=== PATIENT | female | born 1955 | race American Indian/Alaskan Native ===

== ENCOUNTER 2017-05-29 10:19 | Outpatient (CLI) | payer MEDICAID ==
[2017-05-29 10:41] LABS: Hematocrit 32.4 % (30.3-42.9); Hemoglobin 10.7 gm/dl (10.1-14.3); Mean Corpuscular HGB Conc 33 % (30-34); Mean Corpuscular Hemoglobin 32 pg (28-32); Mean Corpuscular Volume 97 fl (79-97); Platelet Count 193 K/mm3 (140-440); Red Blood Count 3.35 M/mm3 (3.65-5.03); Red Cell Distribution Width 14.5 % (13.2-15.2); White Blood Count 5.8 K/mm3 (4.5-11.0)
[2017-05-29 11:03] LABS: BUN/Creatinine Ratio 18.69; Calcium 8.5 mg/dL (8.4-10.2); Chloride 100.2 mmol/L (98-107); Potassium 4.8 mmol/L (3.6-5.0)
[2017-06-02 08:24] LABS: Vitamin D, 25-OH, Total 42 ng/mL (30-100)
== END 2017-05-29 10:20 | disposition home or self-care (01) ==
LOC: LAB 10:19
PROVIDERS: ATTEND Specialist
DX: I13.0 Hypertensive heart and chronic kidney disease with heart failure and stage 1 through stage 4 chronic kidney disease, or unspecified chronic kidney disease (principal); I50.9 Heart failure, unspecified; N18.4 Chronic kidney disease, stage 4 (severe); E55.9 Vitamin D deficiency, unspecified; N25.81 Secondary hyperparathyroidism of renal origin; J44.9 Chronic obstructive pulmonary disease, unspecified; E03.9 Hypothyroidism, unspecified; F41.9 Anxiety disorder, unspecified
CPT/HCPCS: 36415; 80048; 82306; 83550; 83970; 85027

== ENCOUNTER 2017-10-05 20:17 | Inpatient (IN) | payer MEDICAID ==
--- NOTE | 2017-10-05 21:04 | Emergency Department Report ---
ED Chest Pain HPI - General Chief Complaint: Chest Pain Stated Complaint: CP Time Seen by Provider: 10/05/17 20:56 Source: patient Mode of arrival: Ambulatory Limitations: No Limitations - History of Present Illness Initial Comments: This is a 62 year-old female presents to the emergency department, dropped off by family to be seen, with complaint of midsternal left- sided chest pain has been going on for the past 2-3 days. It is gotten progressively worse since this morning. It is associated with some mild shortness of breath. She tried a sublingual nitroglycerin for her symptoms prior to presentation without much relief. She has a past medical history of hypertension, diabetes, chronic kidney disease, vascular disease and coronary artery disease with a stent placed in April at [place] and a double bypass back in 1991. She denies any tobacco use or illicit drug use. No recent travel or sick contacts at home. Her primary care physician is a Dr. Hamlin at [place] and her reagent tender is Dr. Mark Osorio. - Related Data Home Medications Medication Instructions Recorded Confirmed Last Taken Atorvastatin [Lipitor] 80 mg PO QHS 01/03/16 10/05/17 01/03/16 Citalopram [Celexa] 20 mg PO QDAY 01/03/16 10/05/17 01/03/16 Ferrous Sulfate [Feosol 325 MG tab] 325 mg PO QDAY 01/03/16 10/05/17 01/03/16 ISOSORBIDE MONOnitrate [Imdur ER] 120 mg PO QDAY 01/03/16 10/05/17 01/03/16 Levothyroxine Sodium [Synthroid] 112 mcg PO QDAY 01/03/16 10/05/17 01/03/16 Metoprolol Xl [Metoprolol 100 mg PO QDAY 01/03/16 10/05/17 01/03/16 SUCCINATE ER TAB] Nitroglycerin [place] [Nitromist] 1 spray TL Q5MIN PRN 01/03/16 10/05/17 Unknown Ranolazine ER [Ranexa ER] 1,000 mg PO BID 01/03/16 10/05/17 01/03/16 amLODIPine [Norvasc] 10 mg PO DAILY 01/03/16 10/05/17 01/03/16 cloNIDine [Catapres] 0.2 mg PO BID 01/03/16 10/05/17 01/03/16 Albuterol Sulfate [Ventolin HFA] 2 puff IH BID PRN 10/05/17 10/05/17 Unknown Capsaicin 0.075% [Zostrix Hp 1 applicatio TP TID 10/05/17 10/05/17 Unknown 0.075%] Cholecalciferol (Vitamin D3) 400 unit PO BID 10/05/17 10/05/17 Unknown [Vitamin D] Cyclobenzaprine [Flexeril] 5 mg PO TID PRN 10/05/17 10/05/17 Unknown Fluticasone [Flonase] 1 spray NS QDAY 10/05/17 10/05/17 Unknown Insulin Detemir [Levemir Flextouch] 15 unit SQ QHS 10/05/17 10/05/17 Unknown Plecanatide [Trulance] 3 mg PO DAILY 10/05/17 10/05/17 Unknown Potassium Chloride 10 meq PO BID 10/05/17 10/05/17 Unknown Ranitidine HCl [Acid Control] 150 mg PO BID 10/05/17 10/05/17 Unknown Valsartan 40 mg PO DAILY 10/05/17 10/05/17 Unknown glipiZIDE [glipiZIDE XL] 2.5 mg PO DAILY 10/05/17 10/05/17 Unknown oxyCODONE [Roxicodone] 10 mg PO Q6HR PRN 10/05/17 10/05/17 Unknown Previous Rx's Medication Instructions Recorded Last Taken Type Aspirin [Adult Low Dose Aspirin EC] 81 mg PO DAILY #30 tab 01/05/16 Unknown Rx Clopidogrel [Plavix] 75 mg PO QDAY #30 tablet 01/05/16 Unknown Rx Furosemide [Lasix TAB] 40 mg PO QDAY #30 tablet 01/05/16 Unknown Rx Allergies Allergy/AdvReac Type Severity Reaction Status Date / Time lubiprostone [From Amitiza] Allergy Anaphylaxis Verified 10/05/17 21:00 PLASTIC TAPE Allergy MAKES PT Uncoded 11/24/15 09:50 ARM SORE Heart Score - HEART Score History: Moderately suspicious EKG: Non-specific Age: 45-65 Risk factors: > 3 risk factors or hx of atherosclerotic disease Troponin: < normal limit HEART Score: 5 - Critical Actions Critical Actions: 4-6 pts:12-16.6% risk of adverse cardiac event. Should be admitted ED Review of Systems ROS: Stated complaint: CP Other details as noted in HPI Comment: All other systems reviewed and negative Constitutional: denies: chills, fever Eyes: denies: eye pain, eye discharge, vision change ENT: denies: ear pain, throat pain Respiratory: shortness of breath. denies: cough Cardiovascular: chest pain. denies: palpitations Gastrointestinal: denies: abdominal pain, nausea, diarrhea Genitourinary: denies: urgency, dysuria, discharge Musculoskeletal: denies: back pain, joint swelling, arthralgia Skin: denies: rash, lesions Neurological: denies: headache, weakness, paresthesias ED Past Medical Hx - Past Medical History Previous Medical History?: Yes Hx Hypertension: Yes Hx Heart Attack/AMI: Yes Hx Congestive Heart Failure: Yes Hx Diabetes: Yes Hx Renal Disease: Yes Hx Headaches / Migraines: Yes Hx COPD: Yes Additional medical history: "heart disease" - Surgical History Past Surgical History?: Yes Hx Open Heart Surgery: Yes - Social History Smoking Status: Never Smoker Substance Use Type: None - Medications Home Medications: Home Medications Medication Instructions Recorded Confirmed Last Taken Type Atorvastatin [Lipitor] 80 mg PO QHS 01/03/16 10/05/17 01/03/16 History Citalopram [Celexa] 20 mg PO QDAY 01/03/16 10/05/17 01/03/16 History Ferrous Sulfate [Feosol 325 MG tab] 325 mg PO QDAY 01/03/16 10/05/17 01/03/16 History ISOSORBIDE MONOnitrate [Imdur ER] 120 mg PO QDAY 01/03/16 10/05/17 01/03/16 History Levothyroxine Sodium [Synthroid] 112 mcg PO QDAY 01/03/16 10/05/17 01/03/16 History Metoprolol Xl [Metoprolol 100 mg PO QDAY 01/03/16 10/05/17 01/03/16 History SUCCINATE ER TAB] Nitroglycerin [place] [Nitromist] 1 spray TL Q5MIN PRN 01/03/16 10/05/17 Unknown History Ranolazine ER [Ranexa ER] 1,000 mg PO BID 01/03/16 10/05/17 01/03/16 History amLODIPine [Norvasc] 10 mg PO DAILY 01/03/16 10/05/17 01/03/16 History cloNIDine [Catapres] 0.2 mg PO BID 01/03/16 10/05/17 01/03/16 History Aspirin [Adult Low Dose Aspirin EC] 81 mg PO DAILY #30 tab 01/05/16 10/05/17 Unknown Rx Clopidogrel [Plavix] 75 mg PO QDAY #30 tablet 01/05/16 10/05/17 Unknown Rx Furosemide [Lasix TAB] 40 mg PO QDAY #30 tablet 01/05/16 10/05/17 Unknown Rx Albuterol Sulfate [Ventolin HFA] 2 puff IH BID PRN 10/05/17 10/05/17 Unknown History Capsaicin 0.075% [Zostrix Hp 1 applicatio TP TID 10/05/17 10/05/17 Unknown History 0.075%] Cholecalciferol (Vitamin D3) 400 unit PO BID 10/05/17 10/05/17 Unknown History [Vitamin D] Cyclobenzaprine [Flexeril] 5 mg PO TID PRN 10/05/17 10/05/17 Unknown History Fluticasone [Flonase] 1 spray NS QDAY 10/05/17 10/05/17 Unknown History Insulin Detemir [Levemir Flextouch] 15 unit SQ QHS 10/05/17 10/05/17 Unknown History Plecanatide [Trulance] 3 mg PO DAILY 10/05/17 10/05/17 Unknown History Potassium Chloride 10 meq PO BID 10/05/17 10/05/17 Unknown History Ranitidine HCl [Acid Control] 150 mg PO BID 10/05/17 10/05/17 Unknown History Valsartan 40 mg PO DAILY 10/05/17 10/05/17 Unknown History glipiZIDE [glipiZIDE XL] 2.5 mg PO DAILY 10/05/17 10/05/17 Unknown History oxyCODONE [Roxicodone] 10 mg PO Q6HR PRN 10/05/17 10/05/17 Unknown History ED Physical Exam - General Limitations: No Limitations - Other Other exam information: GENERAL: The patient is well-developed well-nourished. HENT: Normocephalic. Atraumatic. Patient has moist mucous membranes. EYES: Extraocular motions are intact. Pupils equal reactive to light bilaterally. NECK: Supple. Trachea is midline. CHEST/LUNGS: Clear to auscultation. There is no respiratory distress noted. HEART/CARDIOVASCULAR: Regular. There is no tachycardia. There is no murmur. ABDOMEN: Abdomen is soft, nontender. Patient has normal bowel sounds. There is no abdominal distention. SKIN: Skin is warm and dry. NEURO: The patient is awake, alert, and oriented. The patient is cooperative. The patient has no focal neurologic deficits. The patient has normal speech. MUSCULOSKELETAL: There is no tenderness or deformity. There is no limitation range of motion. There is no evidence of acute injury. ED Course Vital Signs 10/05/17 10/05/17 10/05/17 20:38 20:40 20:46 Temperature Pulse Rate 67 64 66 Respiratory 12 15 17 Rate Blood Pressure Blood Pressure [Right] O2 Sat by Pulse 99 100 Oximetry 10/05/17 10/05/17 10/05/17 20:50 20:52 21:44 Temperature 98.7 F 98.4 F Pulse Rate 63 65 66 Respiratory 16 20 18 Rate Blood Pressure 159/68 159/68 Blood Pressure 150/68 [Right] O2 Sat by Pulse 100 100 100 Oximetry PAVEL score - Pavel Score Age > 65: (0) No Aspirin use within the Past 7 Days: (0) No 3 or more CAD Risk Factors: (1) Yes 2 or more Angina events in past 24 hrs: (1) Yes Known CAD with more than 50% Stenosis: (0) No Elevated Cardiac Markers: (0) No ST Deviation Greater than 0.5mm: (0) No PAVEL Score: 2 ED Medical Decision Making - Lab Data Result diagrams: 10/05/17 21:10 10/05/17 21:10 - EKG Data -: EKG Interpreted by Me EKG shows normal: sinus rhythm, axis, intervals (prolonged MT interval), QRS complexes (Q waves to the anterior leads), ST-T waves Rate: normal - EKG Data When compared to previous EKG there are: no significant change Interpretation: unchanged when compared t (01/03/16) - Radiology Data Radiology results: report reviewed, image reviewed interpreted by me: Chest x-ray does not show any acute process. There are no pleural effusions, obvious pneumonia and there is no pneumothorax. VQ scan was low probability for a pulmonary embolus. - Medical Decision Making Patient presents with some chest pain and intermittent shortness of breath. She has a significant history of previous coronary artery disease with stent placement in the [facility] in April. EKG does not show any signs of ST elevation DE. Negative troponins 2 this far. Equivocal d-dimer so VQ scan was done that showed low probability of pulmonary embolus. She has a UTI so she was placed on antibiotics. She will be admitted to the hospital for further evaluation and treatment has been accepted for admission by the hospitalist, Dr. Singh. - Differential Diagnosis DE, PE, Costochondritis, GERD Critical Care Time: No Critical care attestation.: If time is entered above; I have spent that time in minutes in the direct care of this critically ill patient, excluding procedure time. ED Disposition Clinical Impression: Chest pressure, Renal insufficiency, History of coronary artery disease, Stented coronary artery Hypertension Qualifiers: Hypertension type: essential hypertension Qualified Code(s): I10 - Essential ( primary) hypertension UTI (urinary tract infection) Qualifiers: Urinary tract infection type: acute cystitis Hematuria presence: without hematuria Qualified Code(s): N30.00 - Acute cystitis without hematuria Disposition: OP ADMIT IP TO THIS HOSP Is pt being admited?: Yes Condition: Stable Time of Disposition: 23:37
[2017-10-05] MEDS ORDERED: MORPHINE IV ONE (21:09)
[2017-10-05] MEDS ORDERED: ZOFRAN IV ONE (21:09)
[2017-10-05 21:19] LABS: Basophils % (Auto) 0.3 % (0.0-1.8); Eosinophils # (Auto) 0.2 K/mm3 (0.0-0.4); Eosinophils % (Auto) 2.3 % (0.0-4.3); Hematocrit 34.5 % (30.3-42.9); Hemoglobin 11.5 gm/dl (10.1-14.3); Lymphocytes # (Auto) 2.6 K/mm3 (1.2-5.4); Lymphocytes % (Auto) 39.7 % (13.4-35.0); Mean Corpuscular HGB Conc 33 % (30-34); Mean Corpuscular Hemoglobin 32 pg (28-32); Mean Corpuscular Volume 96 fl (79-97); Monocytes # (Auto) 0.7 K/mm3 (0.0-0.8); Monocytes % (Auto) 10.2 % (0.0-7.3); Platelet Count 222 K/mm3 (140-440); Red Blood Count 3.58 M/mm3 (3.65-5.03); Red Cell Distribution Width 14.1 % (13.2-15.2)
[2017-10-05 21:43] LABS: Alanine Aminotransferase 13 units/L (7-56); Albumin 4.3 g/dL (3.9-5); BUN/Creatinine Ratio 16; Blood Urea Nitrogen 35 mg/dL (7-17); Calcium 9.1 mg/dL (8.4-10.2); Hemolysis Index 14
[2017-10-05 21:54] LABS: Bacteria,Urine 1+ /HPF (Negative); Bilirubin,Urine NEG (Negative); Blood,Urine NEG (Negative); Color,Urine Yellow (Yellow); Mucus,Urine FEW /HPF; Nitrite,Urine NEG (Negative); Urobilinogen,Urine < 2.0 mg/dL (<2.0)
[2017-10-05] MEDS ORDERED: cefTRIAXone 1 GM in NACL 0.9% 20 ML IV ONE (22:16)
--- NOTE | 2017-10-05 22:29 | XRay Report ---
FINAL REPORT PROCEDURE: XR CHEST 1V AP TECHNIQUE: A portable AP chest radiograph was obtained at 10/06/2017 02:10 ([facility]) . CPT 29757 HISTORY: Chest pain. COMPARISON: Rib series radiographs dated 08/10/2016. FINDINGS: Heart: Mild cardiomegaly. Mediastinum/Vessels: Aortic tortuosity. Lungs/Pleural space: Low lung volumes. Bony thorax: Sternotomy. Mild osteopenia. Mild degenerative changes of the spine. Subchondral cystic changes in the left greater tuberosity. Life support devices: None. IMPRESSION: No new radiographic evidence of acute cardiopulmonary disease. Mild cardiomegaly and aortic tortuosity.
--- NOTE | 2017-10-05 23:31 | Nuclear Medicine Report ---
FINAL REPORT EXAM: NM LUNG SCAN PERF/VENT HISTORY: CP, elevated dimer COMPARISON: Chest x-ray from October 05, 2017. TECHNIQUE: 15 millicurie xenon 133 given for the ventilation portion exam. 5 millicuries technetium 99 M MAA given for the perfusion portion the study by IV. Images of the lungs obtained. FINDINGS: Relatively homogeneous uptake of tracer on the ventilation portion exam. Mild diffuse heterogeneous uptake of tracer on the perfusion portion exam. No mismatched defect. IMPRESSION: Low probability exam for pulmonary embolus.
--- NOTE | 2017-10-05 23:57 | History and Physical Report ---
History of Present Illness Date of examination: 10/05/17 Date of admission: 10/06/2017 Chief complaint: chief complaint: Chest pain since yesterday. History of present illness: History of Present Illness 62 year-old female with past medical history of hypertension, type 2 diabetes, gastroesophageal reflux disease, coronary artery disease, hypothyroidism, hyperlipidemia and anemia presents with complaint of midsternal left-sided chest pain that has been going on for the past 2-3 days. It is gotten progressively worse since this morning. It is associated with some mild shortness of breath. Not associated with any diaphoresis or shortness of breath or palpitations. She tried a sublingual nitroglycerin for her symptoms prior to presentation without much relief. No recent travel or sick contacts at home. Her primary care physician is a Dr. Hamlin at [place] and her medical diagnostic radiographer is Dr. Mark Osorio.Had a stent placement in April 2070 Past Medical History Previous Medical History?: Yes Hx Hypertension: Yes Hx Heart Attack/AMI: Yes Hx Congestive Heart Failure: Yes Hx Diabetes: Yes Hx Renal Disease: Yes Hx Headaches / Migraines: Yes Hx COPD: Yes Additional medical history: "heart disease" - Surgical History Past Surgical History?: Yes Hx Open Heart Surgery: Yes stent placement - Social History Smoking Status: Never Smoker Substance Use Type: None Fam Hx Htn - Medications Home Medications: Home Medications Medication Instructions Recorded Confirmed Last Taken Type Atorvastatin [Lipitor] 80 mg PO QHS 01/03/16 10/05/17 01/03/16 History Citalopram [Celexa] 20 mg PO QDAY 01/03/16 10/05/17 01/03/16 History Ferrous Sulfate [Feosol 325 MG tab] 325 mg PO QDAY 01/03/16 10/05/17 01/03/16 History ISOSORBIDE MONOnitrate [Imdur ER] 120 mg PO QDAY 01/03/16 10/05/17 01/03/16 History Levothyroxine Sodium [Synthroid] 112 mcg PO QDAY 01/03/16 10/05/17 01/03/16 History Metoprolol Xl [Metoprolol 100 mg PO QDAY 01/03/16 10/05/17 01/03/16 History SUCCINATE ER TAB] Nitroglycerin [place] [Nitromist] 1 spray TL Q5MIN PRN 01/03/16 10/05/17 Unknown History Ranolazine ER [Ranexa ER] 1,000 mg PO BID 01/03/16 10/05/17 01/03/16 History amLODIPine [Norvasc] 10 mg PO DAILY 01/03/16 10/05/17 01/03/16 History cloNIDine [Catapres] 0.2 mg PO BID 01/03/16 10/05/17 01/03/16 History Aspirin [Adult Low Dose Aspirin EC] 81 mg PO DAILY #30 tab 01/05/16 10/05/17 Unknown Rx Clopidogrel [Plavix] 75 mg PO QDAY #30 tablet 01/05/16 10/05/17 Unknown Rx Furosemide [Lasix TAB] 40 mg PO QDAY #30 tablet 01/05/16 10/05/17 Unknown Rx Albuterol Sulfate [Ventolin HFA] 2 puff IH BID PRN 10/05/17 10/05/17 Unknown History Capsaicin 0.075% [Zostrix Hp 1 applicatio TP TID 10/05/17 10/05/17 Unknown History 0.075%] Cholecalciferol (Vitamin D3) 400 unit PO BID 10/05/17 10/05/17 Unknown History [Vitamin D] Cyclobenzaprine [Flexeril] 5 mg PO TID PRN 10/05/17 10/05/17 Unknown History Fluticasone [Flonase] 1 spray NS QDAY 10/05/17 10/05/17 Unknown History Insulin Detemir [Levemir Flextouch] 15 unit SQ QHS 10/05/17 10/05/17 Unknown History Plecanatide [Trulance] 3 mg PO DAILY 10/05/17 10/05/17 Unknown History Potassium Chloride 10 meq PO BID 10/05/17 10/05/17 Unknown History Ranitidine HCl [Acid Control] 150 mg PO BID 10/05/17 10/05/17 Unknown History Valsartan 40 mg PO DAILY 10/05/17 10/05/17 Unknown History glipiZIDE [glipiZIDE XL] 2.5 mg PO DAILY 10/05/17 10/05/17 Unknown History oxyCODONE [Roxicodone] 10 mg PO Q6HR PRN 10/05/17 10/05/17 Unknown History Review of Systems Stated complaint: CP Other details as noted in HPI Comment: All other systems reviewed and negative Constitutional: denies: chills, fever Eyes: denies: eye pain, eye discharge, vision change ENT: denies: ear pain, throat pain Respiratory: shortness of breath. denies: cough Cardiovascular: chest pain. denies: palpitations Gastrointestinal: denies: abdominal pain, nausea, diarrhea Genitourinary: denies: urgency, dysuria, discharge Musculoskeletal: denies: back pain, joint swelling, arthralgia Skin: denies: rash, lesions Neurological: denies: headache, weakness, paresthesias Medications and Allergies Allergies Allergy/AdvReac Type Severity Reaction Status Date / Time lubiprostone [From Amitiza] Allergy Anaphylaxis Verified 10/05/17 21:00 PLASTIC TAPE Allergy MAKES PT Uncoded 11/24/15 09:50 ARM SORE Home Medications Medication Instructions Recorded Confirmed Last Taken Type Atorvastatin [Lipitor] 80 mg PO QHS 01/03/16 10/05/17 01/03/16 History Citalopram [Celexa] 20 mg PO QDAY 01/03/16 10/05/17 01/03/16 History Ferrous Sulfate [Feosol 325 MG tab] 325 mg PO QDAY 01/03/16 10/05/17 01/03/16 History ISOSORBIDE MONOnitrate [Imdur ER] 120 mg PO QDAY 01/03/16 10/05/17 01/03/16 History Levothyroxine Sodium [Synthroid] 112 mcg PO QDAY 01/03/16 10/05/17 01/03/16 History Metoprolol Xl [Metoprolol 100 mg PO QDAY 01/03/16 10/05/17 01/03/16 History SUCCINATE ER TAB] Nitroglycerin [place]elin [Nitromist] 1 spray TL Q5MIN PRN 01/03/16 10/05/17 Unknown History Ranolazine ER [Ranexa ER] 1,000 mg PO BID 01/03/16 10/05/17 01/03/16 History amLODIPine [Norvasc] 10 mg PO DAILY 01/03/16 10/05/17 01/03/16 History cloNIDine [Catapres] 0.2 mg PO BID 01/03/16 10/05/17 01/03/16 History Aspirin [Adult Low Dose Aspirin EC] 81 mg PO DAILY #30 tab 01/05/16 10/05/17 Unknown Rx Clopidogrel [Plavix] 75 mg PO QDAY #30 tablet 01/05/16 10/05/17 Unknown Rx Furosemide [Lasix TAB] 40 mg PO QDAY #30 tablet 01/05/16 10/05/17 Unknown Rx Albuterol Sulfate [Ventolin HFA] 2 puff IH BID PRN 10/05/17 10/05/17 Unknown History Capsaicin 0.075% [Zostrix Hp 1 applicatio TP TID 10/05/17 10/05/17 Unknown History 0.075%] Cholecalciferol (Vitamin D3) 400 unit PO BID 10/05/17 10/05/17 Unknown History [Vitamin D] Cyclobenzaprine [Flexeril] 5 mg PO TID PRN 10/05/17 10/05/17 Unknown History Fluticasone [Flonase] 1 spray NS QDAY 10/05/17 10/05/17 Unknown History Insulin Detemir [Levemir Flextouch] 15 unit SQ QHS 10/05/17 10/05/17 Unknown History Plecanatide [Trulance] 3 mg PO DAILY 10/05/17 10/05/17 Unknown History Potassium Chloride 10 meq PO BID 10/05/17 10/05/17 Unknown History Ranitidine HCl [Acid Control] 150 mg PO BID 10/05/17 10/05/17 Unknown History Valsartan 40 mg PO DAILY 10/05/17 10/05/17 Unknown History glipiZIDE [glipiZIDE XL] 2.5 mg PO DAILY 10/05/17 10/05/17 Unknown History oxyCODONE [Roxicodone] 10 mg PO Q6HR PRN 10/05/17 10/05/17 Unknown History Active Meds: Active Medications Heparin Sodium (Porcine) (Heparin) 5,000 unit SUB-Q Q8HR [facility] Exam - Physical Exam Narrative exam: lying in bed comfortably - Constitutional Vitals: Temp Pulse Resp BP Pulse Ox 98.4 F 66 18 150/68 100 10/05/17 21:44 10/05/17 21:44 10/05/17 21:44 10/05/17 21:44 10/05/17 21:44 General appearance: Present: no acute distress, well-nourished - EENT Eyes: Present: PERRL ENT: hearing intact, clear oral mucosa - Neck Neck: Present: supple, normal ROM - Respiratory Respiratory effort: normal Respiratory: bilateral: CTA - Cardiovascular Heart rate: 66 Rhythm: regular Heart Sounds: Present: S1 & S2. Absent: rub, click - Extremities Extremities: pulses symmetrical, No edema Peripheral Pulses: within normal limits - Abdominal General gastrointestinal: Present: soft, non-tender, non-distended, normal bowel sounds Female genitourinary: Present: normal - Rectal Rectal Exam: deferred - Integumentary Integumentary: Present: clear, warm, dry - Musculoskeletal Musculoskeletal: gait normal, strength equal bilaterally - Psychiatric Psychiatric: appropriate mood/affect, intact judgment & insight - Neurologic Neurologic: CNII-XII intact, moves all extremities - Allied Health Allied health notes reviewed: nursing, case management Results - Labs CBC & Chem 7: 10/05/17 21:10 10/05/17 21:10 Labs: Laboratory Last Values WBC 6.6 K/mm3 (4.5-11.0) 10/05/17 21:10 RBC 3.58 M/mm3 (3.65-5.03) L 10/05/17 21:10 Hgb 11.5 gm/dl (10.1-14.3) 10/05/17 21:10 Hct 34.5 % (30.3-42.9) 10/05/17 21:10 MCV 96 fl (79-97) 10/05/17 21:10 MCH 32 pg (28-32) 10/05/17 21:10 MCHC 33 % (30-34) 10/05/17 21:10 RDW 14.1 % (13.2-15.2) 10/05/17 21:10 Plt Count 222 K/mm3 (140-440) 10/05/17 21:10 Lymph % (Auto) 39.7 % (13.4-35.0) H 10/05/17 21:10 [place] % (Auto) 10.2 % (0.0-7.3) H 10/05/17 21:10 Eos % (Auto) 2.3 % (0.0-4.3) 10/05/17 21:10 Baso % (Auto) 0.3 % (0.0-1.8) 10/05/17 21:10 Lymph # 2.6 K/mm3 (1.2-5.4) 10/05/17 21:10 [place] # 0.7 K/mm3 (0.0-0.8) 10/05/17 21:10 Eos # 0.2 K/mm3 (0.0-0.4) 10/05/17 21:10 Baso # 0.0 K/mm3 (0.0-0.1) 10/05/17 21:10 Seg Neutrophils % 47.5 % (40.0-70.0) 10/05/17 21:10 Seg Neutrophils # 3.1 K/mm3 (1.8-7.7) 10/05/17 21:10 D-Dimer 334.19 ng/mlDDU (0-234) H 10/05/17 21:10 Sodium 133 mmol/L (137-145) L 10/05/17 21:10 Potassium 5.0 mmol/L (3.6-5.0) 10/05/17 21:10 Chloride 93.6 mmol/L (98-107) L 10/05/17 21:10 Carbon Dioxide 25 mmol/L (22-30) 10/05/17 21:10 Anion Gap 19 mmol/L 10/05/17 21:10 BUN 35 mg/dL (7-17) H 10/05/17 21:10 Creatinine 2.2 mg/dL (0.7-1.2) H 10/05/17 21:10 Estimated GFR 27 ml/min 10/05/17 21:10 BUN/Creatinine Ratio 16 % 10/05/17 21:10 Glucose 219 mg/dL (65-100) H 10/05/17 21:10 Calcium 9.1 mg/dL (8.4-10.2) 10/05/17 21:10 Total Bilirubin 0.30 mg/dL (0.1-1.2) 10/05/17 21:10 AST 19 units/L (5-40) 10/05/17 21:10 ALT 13 units/L (7-56) 10/05/17 21:10 Alkaline Phosphatase 56 units/L (35-129) 10/05/17 21:10 Troponin T < 0.010 ng/mL (0.00-0.029) 10/05/17 21:10 Total Protein 6.7 g/dL (6.3-8.2) 10/05/17 21:10 Albumin 4.3 g/dL (3.9-5) 10/05/17 21:10 Albumin/Globulin Ratio 1.8 % 10/05/17 21:10 Urine Color Yellow (Yellow) 10/05/17 Unknown Urine Turbidity Clear (Clear) 10/05/17 Unknown Urine pH 6.0 (5.0-7.0) 10/05/17 Unknown Ur Specific [place] 1.017 (1.003-1.030) 10/05/17 Unknown Urine Protein 30 mg/dl mg/dL (Negative) 10/05/17 Unknown Urine Glucose (UA) Neg mg/dL (Negative) 10/05/17 Unknown Urine Ketones Neg mg/dL (Negative) 10/05/17 Unknown Urine Blood Neg (Negative) 10/05/17 Unknown Urine Nitrite Neg (Negative) 10/05/17 Unknown Urine Bilirubin Neg (Negative) 10/05/17 Unknown Urine Urobilinogen < 2.0 mg/dL (<2.0) 10/05/17 Unknown Ur Leukocyte Esterase Lg (Negative) 10/05/17 Unknown Urine WBC (Auto) 49.0 /HPF (0.0-6.0) H 10/05/17 Unknown Urine RBC (Auto) 4.0 /HPF (0.0-6.0) 10/05/17 Unknown U Epithel Cells (Auto) 1.0 /HPF (0-13.0) 10/05/17 Unknown Urine Bacteria (Auto) 1+ /HPF (Negative) 10/05/17 Unknown Urine Mucus Few /HPF 10/05/17 Unknown Short CBC 10/05/17 Range/Units 21:10 WBC 6.6 (4.5-11.0) K/mm3 Hgb 11.5 (10.1-14.3) gm/dl Hct 34.5 (30.3-42.9) % Plt Count 222 (140-440) K/mm3 BMP 10/05/17 21:10 Sodium 133 L Potassium 5.0 Chloride 93.6 L Carbon Dioxide 25 BUN 35 H Creatinine 2.2 H Glucose 219 H Calcium 9.1 Cardiac Enzymes 10/05/17 10/05/17 10/06/17 Range/Units 21:10 23:43 03:35 Troponin T < 0.010 < 0.010 0.012 (0.00-0.029) ng/mL Liver Function 10/05/17 Range/Units 21:10 Total Bilirubin 0.30 (0.1-1.2) mg/dL AST 19 (5-40) units/L ALT 13 (7-56) units/L Alkaline Phosphatase 56 (35-129) units/L Albumin 4.3 (3.9-5) g/dL Urine 10/05/17 Range/Units Unknown Urine Color Yellow (Yellow) Urine pH 6.0 (5.0-7.0) Ur Specific [place] 1.017 (1.003-1.030) Urine Protein 30 mg/dl (Negative) mg/dL Urine Glucose (UA) Neg (Negative) mg/dL - Imaging and Cardiology EKG: report reviewed (normal sinus rhythm prolonged HI interval and nonspecific intraventricular conduction delay interpreted by me) Assessment and Plan Advance Directives: Yes (full code) VTE prophylaxis?: Chemical Plan of care discussed with patient/family: Yes - Patient Problems (1) Chest pain in adult Current Visit: Yes Status: Acute Plan to address problem: chest pain workup. Serial cardiac enzymes. Lexiscan in a.m. Differential diagnosis of costochondritis and gastroesophageal reflux disease. In favor of stable angina. No costochondritis. No chest wall tenderness. Reflexes a possibility (2) Coronary artery disease Current Visit: Yes Status: Chronic Qualifiers: Coronary Disease-Associated Artery/Lesion type: [place] artery [place] vs. transplanted heart: [place] heart Associated angina: with stable angina Qualified Code(s): I25.118 - Atherosclerotic heart disease of [place] coronary artery with other forms of angina pectoris Plan to address problem: continue isosorbide mononitrate 120 mg once a day (3) Hyperlipidemia Current Visit: Yes Status: Chronic Qualifiers: Hyperlipidemia type: mixed hyperlipidemia Qualified Code(s): E78.2 - Mixed hyperlipidemia Plan to address problem: continue statins in the form of Lipitor 80 mg daily at bedtime (4) Hypothyroidism Current Visit: Yes Status: Chronic Qualifiers: Hypothyroidism type: acquired Qualified Code(s): E03.9 - Hypothyroidism, unspecified Plan to address problem: continue Synthroid 112 g once a day (5) Hypertension Current Visit: Yes Status: Chronic Qualifiers: Hypertension type: essential hypertension Qualified Code(s): I10 - Essential (primary) hypertension Plan to address problem: continue antihypertensives in the form of Diovan and metoprolol and clonidine. (6) CHF (congestive heart failure) Current Visit: Yes Status: Chronic Qualifiers: Congestive heart failure type: combined Plan to address problem: continue Lasix (7) T2DM (type 2 diabetes mellitus) Current Visit: Yes Status: Chronic Qualifiers: Diabetes mellitus complication status: without complication Diabetes mellitus mcfp insulin use: without mcfp use Qualified Code(s): E11.9 - Type 2 diabetes mellitus without complications Plan to address problem: continue glipizide and insulin coverage (8) Vitamin D deficiency Current Visit: Yes Status: Chronic Plan to address problem: continue vitamin D (9) Chronic idiopathic constipation Current Visit: Yes Status: Chronic Plan to address problem: continue plecanatide 3mg po qd (10) UTI (urinary tract infection) Current Visit: Yes Status: Acute Qualifiers: Urinary tract infection type: acute cystitis Hematuria presence: without hematuria Qualified Code(s): N30.00 - Acute cystitis without hematuria Plan to address problem: Initiated on Rocephin 1 g IV piggyback daily (11) GERD (gastroesophageal reflux disease) Current Visit: Yes Status: Chronic Qualifiers: Esophagitis presence: without esophagitis Qualified Code(s): K21.9 - Gastro -esophageal reflux disease without esophagitis Plan to address problem: continue ranitidine 150 mg twice a day (12) Chronic kidney disease Current Visit: Yes Status: Chronic Qualifiers: Chronic kidney disease stage: stage 3 (moderate) Qualified Code(s): N18.3 - Chronic kidney disease, stage 3 (moderate) Plan to address problem: stable (13) DVT prophylaxis Current Visit: Yes Status: Acute Plan to address problem: initiated on Lovenox
[2017-10-06] MEDS ORDERED: ZOFRAN ONE (00:58)
[2017-10-06] MEDS ORDERED: MORPHINE ONE (00:59)
[2017-10-06] MEDS ORDERED: ZOFRAN IV PRN ×2 (05:25→07:23)
[2017-10-06] MEDS: MORPHINE IV PRN (05:38)
[2017-10-06] MEDS ORDERED: HEPARIN SUB-Q SCH (06:00)
[2017-10-06] MEDS ORDERED: FLEXERIL PO PRN (07:20)
[2017-10-06] MEDS ORDERED: NITROMIST TL PRN (07:20)
[2017-10-06] MEDS ORDERED: PROAIR IH PRN (07:20)
[2017-10-06] MEDS ORDERED: ROXICODONE PO PRN (07:20)
[2017-10-06] MEDS ORDERED: PERCOCET 5/325 PO PRN (07:23)
[2017-10-06] MEDS ORDERED: TYLENOL PO PRN (09:00)
[2017-10-06] MEDS ORDERED: LEVOTHYROXINE SODIUM 112 MCG PO SCH (10:00)
[2017-10-06] MEDS ORDERED: DULCOLAX PR PRN (10:00)
[2017-10-06] MEDS ORDERED: NON-FORMULARY (Potassium Chloride [Potassium Chloride] 10 MEQ) PO SCH (10:00)
[2017-10-06] MEDS ORDERED: PLECANATIDE 3 MG PO SCH (10:00)
[2017-10-06] MEDS ORDERED: NON-FORMULARY (Ranitidine Hcl [Acid Control] 150 MG) PO SCH (10:00)
[2017-10-06] MEDS ORDERED: CHOLECALCIFEROL 400 UNIT PO SCH (10:00)
[2017-10-06] MEDS ORDERED: PROVENTIL IH PRN ×2 (10:42→10:49)
--- NOTE | 2017-10-06 10:50 | Consultation ---
History of Present Illness Consult date: 10/06/17 Requesting physician: AZEEM BARRIOS Consult reason: chest pain History of present illness: 62 year-old female who follows Dr. Mark Osorio on a regular basis , presented to the hospital with spontaneous onset of chest pain. Patient reports severe 7-8 out of 10 substernal chest pain that was spontaneous in onset. She did try some sublingual nitroglycerin with marginal benefit. Given her significant cardiac history she presented to the hospital. By the time she presented to the hospital her chest pain was significantly better. She has not had any recurrence of chest pain since she's been admitted. So far her cardiac enzymes are being unremarkable and the EKG shows anteroseptal Q waves that does not appear to be significantly changed from before. She does have a significant cardiac history. She is status post bypass surgery and apparently had recent PCI a few months ago at [facility]. Past History Past Medical History: CAD Past Surgical History: CABG Social history: no significant social history Family history: no significant family history Medications and Allergies Allergies Allergy/AdvReac Type Severity Reaction Status Date / Time lubiprostone [From Amitiza] Allergy Anaphylaxis Verified 10/05/17 21:00 PLASTIC TAPE Allergy MAKES PT Uncoded 11/24/15 09:50 ARM SORE Home Medications Medication Instructions Recorded Confirmed Last Taken Type Atorvastatin [Lipitor] 80 mg PO QHS 01/03/16 10/05/17 01/03/16 History Citalopram [Celexa] 20 mg PO QDAY 01/03/16 10/05/17 01/03/16 History Ferrous Sulfate [Feosol 325 MG tab] 325 mg PO QDAY 01/03/16 10/05/17 01/03/16 History ISOSORBIDE MONOnitrate [Imdur ER] 120 mg PO QDAY 01/03/16 10/05/17 01/03/16 History Levothyroxine Sodium [Synthroid] 112 mcg PO QDAY 01/03/16 10/05/17 01/03/16 History Metoprolol Xl [Metoprolol 100 mg PO QDAY 01/03/16 10/05/17 01/03/16 History SUCCINATE ER TAB] Nitroglycerin [place] [Nitromist] 1 spray TL Q5MIN PRN 01/03/16 10/05/17 Unknown History Ranolazine ER [Ranexa ER] 1,000 mg PO BID 01/03/16 10/05/17 01/03/16 History amLODIPine [Norvasc] 10 mg PO DAILY 01/03/16 10/05/17 01/03/16 History cloNIDine [Catapres] 0.2 mg PO BID 01/03/16 10/05/17 01/03/16 History Aspirin [Adult Low Dose Aspirin EC] 81 mg PO DAILY #30 tab 01/05/16 10/05/17 Unknown Rx Clopidogrel [Plavix] 75 mg PO QDAY #30 tablet 01/05/16 10/05/17 Unknown Rx Furosemide [Lasix TAB] 40 mg PO QDAY #30 tablet 01/05/16 10/05/17 Unknown Rx Albuterol Sulfate [Ventolin HFA] 2 puff IH BID PRN 10/05/17 10/05/17 Unknown History Capsaicin 0.075% [Zostrix Hp 1 applicatio TP TID 10/05/17 10/05/17 Unknown History 0.075%] Cholecalciferol (Vitamin D3) 400 unit PO BID 10/05/17 10/05/17 Unknown History [Vitamin D] Cyclobenzaprine [Flexeril] 5 mg PO TID PRN 10/05/17 10/05/17 Unknown History Fluticasone [Flonase] 1 spray NS QDAY 10/05/17 10/05/17 Unknown History Insulin Detemir [Levemir Flextouch] 15 unit SQ QHS 10/05/17 10/05/17 Unknown History Plecanatide [Trulance] 3 mg PO DAILY 10/05/17 10/05/17 Unknown History Potassium Chloride 10 meq PO BID 10/05/17 10/05/17 Unknown History Ranitidine HCl [Acid Control] 150 mg PO BID 10/05/17 10/05/17 Unknown History Valsartan 40 mg PO DAILY 10/05/17 10/05/17 Unknown History glipiZIDE [glipiZIDE XL] 2.5 mg PO DAILY 10/05/17 10/05/17 Unknown History oxyCODONE [Roxicodone] 10 mg PO Q6HR PRN 10/05/17 10/05/17 Unknown History Active Meds: Active Medications Acetaminophen (Tylenol) 650 mg PO Q4H PRN PRN Reason: Pain MILD(1-3)/Fever >100.5/RUFF Albuterol (Proair) 2 puff IH BID PRN PRN Reason: Shortness Of Breath Amlodipine Besylate (Norvasc) 10 mg PO DAILY [facility] Aspirin (Halfprin Ec) 81 mg PO DAILY [facility] Atorvastatin Calcium (Lipitor) 80 mg PO QHS [facility] Bisacodyl (Dulcolax) 10 mg [place] QDAY PRN PRN Reason: Constipation unrelieved by MOM Capsaicin (Zostrix Hp) 1 applic TP TID [facility] Cholecalciferol (Vitamin D3) 400 unit PO BID [facility] Citalopram Hydrobromide (Celexa) 20 mg PO QDAY [facility] Clonidine HCl (Catapres) 0.2 mg PO BID [facility] Clopidogrel Bisulfate (Plavix) 75 mg PO QDAY [facility] Cyclobenzaprine HCl (Flexeril) 5 mg PO TID PRN PRN Reason: Muscle Spasm Enoxaparin Sodium (Lovenox) 40 mg SUB-Q QDAY@2200 [facility] Famotidine (Pepcid) 10 mg PO BID [facility] Ferrous Sulfate (Feosol) 325 mg PO QDAY [facility] Fluticasone Propionate (Flonase) 50 mcg NS QDAY [facility] Furosemide (Lasix) 40 mg PO QDAY [facility] Glipizide (Glucotrol Xl) 2.5 mg PO QDDIAB [facility] Heparin Sodium (Porcine) (Heparin) 5,000 unit SUB-Q Q8HR [facility] Last Admin: 10/06/17 05:39 Dose: 5,000 unit Ceftriaxone Sodium 1 gm/ (Sodium Chloride) 20 mls @ 20 mls/10 min IV Q24HR [facility] PRN Reason: Protocol Insulin Aspart (Novolog) 0 units SUB-Q ACHS [facility] PRN Reason: Protocol Insulin Detemir (Levemir) 15 units SUB-Q QHS [facility] Isosorbide Mononitrate (Imdur) 120 mg PO QDAY [facility] Levothyroxine Sodium (Synthroid) 112 mcg PO DAILY@0600 [facility] Magnesium Hydroxide (Milk Of Magnesia) 30 ml PO Q4H PRN PRN Reason: Constipation Metoprolol Succinate (Toprol Xl) 100 mg PO QDAY [facility] Miscellaneous Medication (Plecanatide [Trulance]) 3 mg PO DAILY [facility] Morphine Sulfate (Morphine) 2 mg IV Q4H PRN PRN Reason: Pain, Moderate (4-6) Last Admin: 10/06/17 05:38 Dose: 2 mg Nitroglycerin (Nitromist) 1 spray TL Q5MIN PRN PRN Reason: Chest Pain Ondansetron HCl (Zofran) 4 mg IV Q4H PRN PRN Reason: Nausea And Vomiting Last Admin: 10/06/17 05:39 Dose: 4 mg Ondansetron HCl (Zofran) 4 mg IV Q8H PRN PRN Reason: N/V unrelieved by Reglan Oxycodone HCl (Roxicodone) 10 mg PO Q6H PRN PRN Reason: Pain Oxycodone/Acetaminophen (Percocet 5/325) 1 tab PO Q6H PRN PRN Reason: Pain, Moderate (4-6) Potassium Chloride (K-Dur) 10 meq PO BID [facility] Ranolazine (Ranexa Er) 1,000 mg PO BID [facility] Valsartan (Diovan) 40 mg PO DAILY [facility] Review of Systems All systems: negative (mentioned in H&P) Physical Examination Vital Signs Pulse Resp 67 12 10/05/17 20:38 10/05/17 20:38 Narrative exam: Vitals reviewed GEN: No acute distress noted HEENT: Carotids 2+ NECK: Supple CVS: S1 and S2 heard no significant murmur or gallop noted LUNGS/CHEST: Normal auscultation ABD: Soft nontender Extremities: No edema noted normal color NEURO: Alert moves all all 4 extremities PSY: Stable Results 10/05/17 21:10 10/05/17 21:10 Cardiac Enzymes 10/05/17 Range/Units 21:10 AST 19 (5-40) units/L CBC 10/05/17 Range/Units 21:10 WBC 6.6 (4.5-11.0) K/mm3 RBC 3.58 L (3.65-5.03) M/mm3 Hgb 11.5 (10.1-14.3) gm/dl Hct 34.5 (30.3-42.9) % Plt Count 222 (140-440) K/mm3 Lymph # 2.6 (1.2-5.4) K/mm3 [place] # 0.7 (0.0-0.8) K/mm3 Eos # 0.2 (0.0-0.4) K/mm3 Baso # 0.0 (0.0-0.1) K/mm3 Comprehensive Metabolic Panel 10/05/17 Range/Units 21:10 Sodium 133 L (137-145) mmol/L Potassium 5.0 (3.6-5.0) mmol/L Chloride 93.6 L (98-107) mmol/L Carbon Dioxide 25 (22-30) mmol/L BUN 35 H (7-17) mg/dL Creatinine 2.2 H (0.7-1.2) mg/dL Glucose 219 H (65-100) mg/dL Calcium 9.1 (8.4-10.2) mg/dL AST 19 (5-40) units/L ALT 13 (7-56) units/L Alkaline Phosphatase 56 (35-129) units/L Total Protein 6.7 (6.3-8.2) g/dL Albumin 4.3 (3.9-5) g/dL EKG interpretations - Telemetry EKG Rhythm: Sinus Rhythm (anteroseptal Q waves) Assessment and Plan Impression 1. Chest pain reminiscent of her prior angina 2. CAD status post bypass surgery 3. CAD recent PCI at [place] 4. Abnormal EKG with anteroseptal Q waves 5. Hypertension 6. Hyperlipidemia Plan Since is no significant change in her EKG or significant bump in cardiac enzymes and also as she is chest pain-free we'll try to maximize her anginal medications. She is currently on amlodipine and Imdur and metoprolol. May consider adding Ranexa. In view of the significant cardiac history will consider a stress test tomorrow. Further treatment will be based on the stress test results. We thank you for kindly involving us in the care of the patient
[2017-10-06] MEDS: RANEXA ER PO SCH ×3 (10:56→22:00)
[2017-10-06] MEDS: HALFPRIN EC PO SCH (10:56)
[2017-10-06] MEDS: FEOSOL PO SCH (10:56)
[2017-10-06] MEDS: PLAVIX PO SCH (10:56)
[2017-10-06] MEDS: CATAPRES PO SCH ×3 (10:57→22:00)
[2017-10-06] MEDS: NORVASC PO SCH (10:57)
[2017-10-06] MEDS: IMDUR PO SCH (10:58)
[2017-10-06] MEDS: DIOVAN PO SCH (10:58)
[2017-10-06] MEDS: K-DUR PO SCH ×2 (10:58→21:51)
[2017-10-06] MEDS: LASIX PO SCH (10:58)
[2017-10-06] MEDS: SYNTHROID PO SCH (10:59)
[2017-10-06] MEDS: GLUCOTROL XL PO SCH (10:59)
[2017-10-06] MEDS: celeXA PO SCH (10:59)
[2017-10-06] MEDS: ZOSTRIX HP TP SCH ×3 (11:01→20:32)
[2017-10-06] MEDS: NOVOLOG SUB-Q SCH ×3 (11:01→17:31)
[2017-10-06] MEDS: FLONASE NS SCH (11:25)
[2017-10-06] MEDS: VITAMIN D3 PO SCH ×3 (12:11→22:00)
[2017-10-06] MEDS: PEPCID PO SCH ×3 (12:11→22:00)
[2017-10-06] MEDS: TOPROL XL PO SCH (12:11)
[2017-10-06] MEDS: MILK OF MAGNESIA PO PRN (12:11)
[2017-10-06] MEDS: cefTRIAXone 1 GM in NACL 0.9% 20 ML IV SCH (12:12)
--- NOTE | 2017-10-06 13:24 | Progress Note ---
Assessment and Plan 62 year-old female with past medical history of hypertension, type 2 diabetes, gastroesophageal reflux disease, coronary artery disease, hypothyroidism, hyperlipidemia and anemia presents with complaint of midsternal left-sided chest pain that has been going on for the past 2-3 days. She is status post bypass surgery and apparently had recent PCI a few months ago at [facility]. / Chest pain in adult chest pain workup. Serial cardiac enzymes. Lexiscan in a.m. Differential diagnosis includes angina, costochondritis and gastroesophageal reflux disease. In favor of stable angina. No costochondritis. No chest wall tenderness. Reflexes also a possibility. cardiology following /Coronary artery disease continue isosorbide mononitrate 120 mg once a day / Hyperlipidemia continue statins in the form of Lipitor 80 mg daily at bedtime / Hypothyroidism continue Synthroid 112 g once a day /Hypertension continue antihypertensives in the form of Diovan and metoprolol and clonidine. /CHF (congestive heart failure) continue Lasix /T2DM (type 2 diabetes mellitus) continue insulin coverage hold glipizide / Vitamin D deficiency continue vitamin D /Chronic idiopathic constipation continue plecanatide 3mg po qd /UTI (urinary tract infection) Initiated on Rocephin 1 g IV piggyback daily / GERD (gastroesophageal reflux disease) continue ranitidine 150 mg twice a day /Chronic kidney disease stable /DVT prophylaxis initiated on Lovenox renally dosed Physical Exam: General appearance: Present: no acute distress, well-nourished - EENT Eyes: Present: PERRL ENT: hearing intact, clear oral mucosa - Neck Neck: Present: supple, normal ROM - Respiratory Respiratory effort: normal Respiratory: bilateral: CTA - Cardiovascular Heart rate: 66 Rhythm: regular Heart Sounds: Present: S1 & S2. Absent: rub, click - Extremities Extremities: pulses symmetrical, No edema Peripheral Pulses: within normal limits - Abdominal General gastrointestinal: Present: soft, non-tender, non-distended, normal bowel sounds Female genitourinary: Present: normal - Rectal Rectal Exam: deferred - Integumentary Integumentary: Present: clear, warm, dry - Musculoskeletal Musculoskeletal: gait normal, strength equal bilaterally - Psychiatric Psychiatric: appropriate mood/affect, intact judgment & insight - Neurologic Neurologic: CNII-XII intact, moves all extremities - Allied Health Allied health notes reviewed: nursing, case management Subjective Date of service: 10/06/17 Interval history: Pt seen and examined c/o intermittent chest pain plan for stress text tomorrow Objective - Constitutional Vitals: Vital Signs - 12hr 10/06/17 10/06/17 10/06/17 01:24 01:37 01:54 Temperature Pulse Rate 70 Respiratory 20 20 20 Rate Blood Pressure Blood Pressure 164/75 [Right] O2 Sat by Pulse Oximetry 10/06/17 10/06/17 10/06/17 03:43 08:24 10:00 Temperature 97.6 F 97.5 F L Pulse Rate 61 61 Respiratory 20 18 18 Rate Blood Pressure 146/58 Blood Pressure 155/66 [Right] O2 Sat by Pulse 94 96 Oximetry 10/06/17 10/06/17 10/06/17 10:57 10:58 11:35 Temperature 97.4 F L Pulse Rate 62 Respiratory 18 Rate Blood Pressure 155/86 155/86 163/60 Blood Pressure [Right] O2 Sat by Pulse 100 Oximetry 10/06/17 12:11 Temperature Pulse Rate Respiratory Rate Blood Pressure 155/86 Blood Pressure [Right] O2 Sat by Pulse Oximetry - Labs CBC & Chem 7: 10/07/17 04:37 10/07/17 04:37 Labs: Abnormal lab results 10/05/17 10/05/17 10/05/17 Range/Units 21:10 21:10 21:10 RBC 3.58 L (3.65-5.03) M/mm3 Lymph % (Auto) 39.7 H (13.4-35.0) % [place] % (Auto) 10.2 H (0.0-7.3) % D-Dimer 334.19 H (0-234) ng/mlDDU Sodium 133 L (137-145) mmol/L Chloride 93.6 L (98-107) mmol/L BUN 35 H (7-17) mg/dL Creatinine 2.2 H (0.7-1.2) mg/dL Glucose 219 H (65-100) mg/dL Urine WBC (Auto) (0.0-6.0) /HPF 10/05/17 Range/Units Unknown RBC (3.65-5.03) M/mm3 Lymph % (Auto) (13.4-35.0) % [place] % (Auto) (0.0-7.3) % D-Dimer (0-234) ng/mlDDU Sodium (137-145) mmol/L Chloride (98-107) mmol/L BUN (7-17) mg/dL Creatinine (0.7-1.2) mg/dL Glucose (65-100) mg/dL Urine WBC (Auto) 49.0 H (0.0-6.0) /HPF
[2017-10-06] MEDS: LOVENOX SUB-Q SCH ×2 (20:47→22:00)
[2017-10-06] MEDS: LEVEMIR SUB-Q SCH (21:52)
[2017-10-06] MEDS ORDERED: LOVENOX SUB-Q SCH (22:00)
[2017-10-06] MEDS ORDERED: NON-FORMULARY (Atorvastatin [Lipitor] 80 MG) PO SCH (22:00)
[2017-10-06] MEDS ORDERED: INSULIN DETEMIR 15 UNIT SQ SCH (22:00)
[2017-10-07] MEDS: NOVOLOG SUB-Q SCH ×5 (00:24→21:34)
[2017-10-07] MEDS: SYNTHROID PO SCH (05:14)
[2017-10-07 05:34] LABS: Basophils # (Auto) 0.1 K/mm3 (0.0-0.1); Basophils % (Auto) 1.4 % (0.0-1.8); Eosinophils # (Auto) 0.2 K/mm3 (0.0-0.4); Eosinophils % (Auto) 3.8 % (0.0-4.3); Hematocrit 32.7 % (30.3-42.9); Hemoglobin 10.9 gm/dl (10.1-14.3); Lymphocytes # (Auto) 2.3 K/mm3 (1.2-5.4); Lymphocytes % (Auto) 47.1 % (13.4-35.0); Mean Corpuscular HGB Conc 33 % (30-34); Mean Corpuscular Hemoglobin 32 pg (28-32); Mean Corpuscular Volume 97 fl (79-97); Monocytes # (Auto) 0.6 K/mm3 (0.0-0.8); Monocytes % (Auto) 11.7 % (0.0-7.3); Platelet Count 199 K/mm3 (140-440); Red Blood Count 3.37 M/mm3 (3.65-5.03); Red Cell Distribution Width 14.5 % (13.2-15.2)
[2017-10-07 05:58] LABS: Albumin 3.5 g/dL (3.9-5); Calcium 8.6 mg/dL (8.4-10.2)
[2017-10-07] MEDS ORDERED: D50W (25GM) Syringe IV ONE ×3 (07:29→19:00)
[2017-10-07] MEDS: ZOSTRIX HP TP SCH ×3 (07:47→21:45)
[2017-10-07] MEDS ORDERED: LEXISCAN IV ONE ×2 (09:27→09:28)
[2017-10-07] MEDS: MORPHINE IV PRN (10:50)
[2017-10-07] MEDS: NORVASC PO SCH (10:53)
[2017-10-07] MEDS: LASIX PO SCH ×2 (10:53→12:03)
[2017-10-07] MEDS: GLUCOTROL XL PO SCH (10:53)
[2017-10-07] MEDS: celeXA PO SCH ×2 (10:53→12:03)
[2017-10-07] MEDS: K-DUR PO SCH ×2 (10:53→12:02)
[2017-10-07] MEDS: IMDUR PO SCH (10:53)
[2017-10-07] MEDS: CATAPRES PO SCH ×2 (10:53→21:43)
[2017-10-07] MEDS: FEOSOL PO SCH (10:53)
[2017-10-07] MEDS: HALFPRIN EC PO SCH (10:53)
[2017-10-07] MEDS: PEPCID PO SCH ×2 (10:53→21:42)
[2017-10-07] MEDS: DIOVAN PO SCH (10:53)
[2017-10-07] MEDS: FLONASE NS SCH (10:54)
[2017-10-07] MEDS: PLAVIX PO SCH (10:56)
[2017-10-07] MEDS: cefTRIAXone 1 GM in NACL 0.9% 20 ML IV SCH (10:56)
[2017-10-07] MEDS: RANEXA ER PO SCH ×2 (11:40→21:42)
[2017-10-07] MEDS: VITAMIN D3 PO SCH ×2 (11:41→21:42)
--- NOTE | 2017-10-07 11:54 | Progress Note ---
Assessment and Plan - Patient Problems (1) Chest pain Current Visit: Yes Status: Acute Plan to address problem: No further chest pain, ECG and cardiac enzymes are benign, thallium stress test is negative. Okay for cardiac discharge on medications including oral antiplatelets and follow-up with her primary large animal veterinarian Dr. Timi Osorio in 3 -5 days. Return to the emergency room immediately if any recurrent chest pain. Subjective Date of service: 10/07/17 Interval history: The patient underwent a Persantine thallium stress test today, the results of which are normal perfusion and normal left ventricular systolic function. She has a history of coronary artery disease, status post remote coronary bypass in the early . More recently, 4 months ago she underwent a cardiac catheterization at [place] which was followed by a coronary stent procedure. An echocardiogram in this hospital previous to that in December 2015 documented a left ventricle ejection fraction of 40-45%. She takes Plavix for oral antiplatelet therapy. EKG on this presentation was normal sinus rhythm and nonspecific ST and T-wave changes, no acute ischemia or infarction. Objective Vital Signs Temp Pulse Resp BP Pulse Ox 10/07/17 09:39 64 140/61 10/07/17 09:38 66 130/59 10/07/17 09:37 65 138/60 10/07/17 09:36 66 131/61 10/07/17 09:35 61 175/71 10/07/17 09:20 56 L 175/71 10/07/17 08:20 20 10/07/17 07:18 97.9 F 55 L 18 143/64 99 10/07/17 04:48 97.7 F 55 L 20 130/56 100 10/07/17 00:27 97.9 F 53 L 18 133/54 97 10/06/17 22:00 58 L 10/06/17 19:54 98.3 F 58 L 20 128/50 96 10/06/17 16:18 56 L 18 114/51 97 10/06/17 15:49 98.2 F 68 18 129/51 98 10/06/17 12:11 155/86 - Physical Examination General: Appears Well HEENT: Positive: PERRL Neck: Positive: neck supple Cardiac: Positive: Reg Rate and Rhythm Lungs: Positive: clear to auscultation Neuro: Positive: Grossly Intact Abdomen: Positive: Soft Skin: Positive: Clear Extremities: Absent: edema - Labs and Meds Cardiac Enzymes 10/07/17 Range/Units 04:37 AST 16 (5-40) units/L CBC 10/07/17 Range/Units 04:37 WBC 4.8 (4.5-11.0) K/mm3 RBC 3.37 L (3.65-5.03) M/mm3 Hgb 10.9 (10.1-14.3) gm/dl Hct 32.7 (30.3-42.9) % Plt Count 199 (140-440) K/mm3 Lymph # 2.3 (1.2-5.4) K/mm3 [place] # 0.6 (0.0-0.8) K/mm3 Eos # 0.2 (0.0-0.4) K/mm3 Baso # 0.1 (0.0-0.1) K/mm3 Comprehensive Metabolic Panel 10/07/17 Range/Units 04:37 Sodium 136 L (137-145) mmol/L Potassium 5.2 H (3.6-5.0) mmol/L Chloride 99.3 (98-107) mmol/L Carbon Dioxide 25 (22-30) mmol/L BUN 35 H (7-17) mg/dL Creatinine 2.2 H (0.7-1.2) mg/dL Glucose 93 (65-100) mg/dL Calcium 8.6 (8.4-10.2) mg/dL AST 16 (5-40) units/L ALT 11 (7-56) units/L Alkaline Phosphatase 38 (35-129) units/L Total Protein 6.1 L (6.3-8.2) g/dL Albumin 3.5 L (3.9-5) g/dL - Imaging and Cardiology EKG: report reviewed (normal sinus rhythm prolonged RI interval and nonspecific intraventricular conduction delay interpreted by me)
[2017-10-07] MEDS ORDERED: KIONEX PO PRN (11:59)
--- NOTE | 2017-10-07 12:02 | Discharge Summary ---
Providers - Providers Date of Admission: 10/05/17 23:38 Date of discharge: 10/07/17 Attending physician: RODRÍGUEZ PADILLA 10/06/17 07:23 Consult to Physician [CONS] Routine Consulting Provider: REINALDO REN Reason For Exam: Chest pain Place consult to:: [place] [facility] Notified:: a service Phone number called:: [phone] Was contact made?: Yes If yes, spoke with:: oct Time called:: 08:04 Primary care physician: AUBREY NERI Hospitalization Condition: Stable Hospital course: 62 year-old female with past medical history of hypertension, type 2 diabetes, gastroesophageal reflux disease, coronary artery disease, hypothyroidism, hyperlipidemia and anemia presents with complaint of midsternal left-sided chest pain that has been going on for the past 2-3 days. She is status post bypass surgery and apparently had recent PCI a few months ago at [facility]. Discharge diagnosis and management: / Chest pain in adult chest pain workup. Serial cardiac enzymes. Lexiscan in a.m was normal. Differential diagnosis includes angina, costochondritis and gastroesophageal reflux disease. In favor of stable angina. No costochondritis. No chest wall tenderness. Reflexes also a possibility. cardiology following /Coronary artery disease continue isosorbide mononitrate 120 mg once a day / Hyperlipidemia continue statins in the form of Lipitor 80 mg daily at bedtime / Hypothyroidism continue Synthroid 112 g once a day /Hypertension continue antihypertensives in the form of Diovan and metoprolol and clonidine. /CHF (congestive heart failure) continue Lasix /T2DM (type 2 diabetes mellitus) continue insulin coverage hold glipizide / Vitamin D deficiency continue vitamin D /Chronic idiopathic constipation continue plecanatide 3mg po qd /UTI (urinary tract infection) Initiated on Rocephin 1 g IV piggyback daily / GERD (gastroesophageal reflux disease) continue ranitidine 150 mg twice a day /Chronic kidney disease stable /DVT prophylaxis initiated on Lovenox renally dosed Physical Exam: General appearance: Present: no acute distress, well-nourished - EENT Eyes: Present: PERRL ENT: hearing intact, clear oral mucosa - Neck Neck: Present: supple, normal ROM - Respiratory Respiratory effort: normal Respiratory: bilateral: CTA - Cardiovascular Heart rate: 66 Rhythm: regular Heart Sounds: Present: S1 & S2. Absent: rub, click - Extremities Extremities: pulses symmetrical, No edema Peripheral Pulses: within normal limits - Abdominal General gastrointestinal: Present: soft, non-tender, non-distended, normal bowel sounds Female genitourinary: Present: normal - Rectal Rectal Exam: deferred - Integumentary Integumentary: Present: clear, warm, dry - Musculoskeletal Musculoskeletal: gait normal, strength equal bilaterally - Psychiatric Psychiatric: appropriate mood/affect, intact judgment & insight - Neurologic Neurologic: CNII-XII intact, moves all extremities - Allied Health Allied health notes reviewed: nursing, case management Disposition: DC- TO HOME OR SELFCARE Time spent for discharge: 32 minutes Exam - Constitutional Vitals: Temp Pulse Resp BP Pulse Ox 97.6 F 63 18 163/68 99 10/07/17 11:18 10/07/17 11:18 10/07/17 11:18 10/07/17 11:18 10/07/17 11:18 Plan Activity: advance as tolerated Weight Bearing Status: Weight Bear as Tolerated Diet: low fat, low salt Follow up with: AUBREY NERI MD [Primary Care Provider] - 3-5 Days Prescriptions: Levofloxacin [Levaquin] 250 mg PO QDAY #4 tablet
[2017-10-07] MEDS ORDERED: PERCOCET 5/325 PO PRN (12:57)
[2017-10-07] MEDS: TOPROL XL PO SCH (13:30)
[2017-10-07] MEDS: BENTYL PO SCH ×3 (14:44→21:43)
[2017-10-07] MEDS: MILK OF MAGNESIA PO PRN (17:10)
[2017-10-07] MEDS ORDERED: D50W (25GM) Vial IV ONE (18:12)
--- NOTE | 2017-10-07 18:19 | Progress Note ---
Assessment and Plan 62 year-old female with past medical history of hypertension, type 2 diabetes, gastroesophageal reflux disease, coronary artery disease, hypothyroidism, hyperlipidemia and anemia presents with complaint of midsternal left-sided chest pain that has been going on for the past 2-3 days. She is status post bypass surgery and apparently had recent PCI a few months ago at [facility]. / Chest pain in adult s/p Lexiscan today. cardiology following and recommended medical Mx /hyperkalemia was on K-dur at home, will order kayexalate, insulin along with d50 cont to monitor K level /Coronary artery disease continue isosorbide mononitrate 120 mg once a day / Hyperlipidemia continue statins in the form of Lipitor 80 mg daily at bedtime / Hypothyroidism continue Synthroid 112 g once a day /Hypertension continue antihypertensives in the form of metoprolol and clonidine. will hold Diovan for hyperkalemia /CHF (congestive heart failure) continue Lasix /T2DM (type 2 diabetes mellitus) continue insulin coverage hold glipizide / Vitamin D deficiency continue vitamin D /Chronic idiopathic constipation continue plecanatide 3mg po qd /UTI (urinary tract infection) Initiated on Rocephin 1 g IV piggyback daily / GERD (gastroesophageal reflux disease) continue ranitidine 150 mg twice a day /Chronic kidney disease stable /DVT prophylaxis initiated on Lovenox renally dosed Physical Exam: General appearance: Present: no acute distress, well-nourished - EENT Eyes: Present: PERRL ENT: hearing intact, clear oral mucosa - Neck Neck: Present: supple, normal ROM - Respiratory Respiratory effort: normal Respiratory: bilateral: CTA - Cardiovascular Heart rate: 66 Rhythm: regular Heart Sounds: Present: S1 & S2. Absent: rub, click - Extremities Extremities: pulses symmetrical, No edema Peripheral Pulses: within normal limits - Abdominal General gastrointestinal: Present: soft, non-tender, non-distended, normal bowel sounds Female genitourinary: Present: normal - Rectal Rectal Exam: deferred - Integumentary Integumentary: Present: clear, warm, dry - Musculoskeletal Musculoskeletal: gait normal, strength equal bilaterally - Psychiatric Psychiatric: appropriate mood/affect, intact judgment & insight - Neurologic Neurologic: CNII-XII intact, moves all extremities - Allied Health Allied health notes reviewed: nursing, case management Subjective Date of service: 10/07/17 Interval history: Pt seen and examined continue to c/o intermittent chest pain s/p stress test today Objective - Constitutional Vitals: Vital Signs - 12hr 10/07/17 10/07/17 10/07/17 07:18 08:20 09:20 Temperature 97.9 F Pulse Rate 55 L 56 L Respiratory 18 20 Rate Blood Pressure 143/64 175/71 O2 Sat by Pulse 99 Oximetry 10/07/17 10/07/17 10/07/17 09:35 09:36 09:37 Temperature Pulse Rate 61 66 65 Respiratory Rate Blood Pressure 175/71 131/61 138/60 O2 Sat by Pulse Oximetry 10/07/17 10/07/17 10/07/17 09:38 09:39 10:00 Temperature Pulse Rate 66 64 52 L Respiratory Rate Blood Pressure 130/59 140/61 O2 Sat by Pulse Oximetry 10/07/17 10/07/17 11:18 15:10 Temperature 97.6 F 97.5 F L Pulse Rate 63 61 Respiratory 18 18 Rate Blood Pressure 163/68 133/54 O2 Sat by Pulse 99 99 Oximetry - Labs CBC & Chem 7: 10/07/17 04:37 10/07/17 18:27 Labs: Abnormal lab results 10/06/17 10/06/17 10/06/17 Range/Units 07:24 11:40 21:25 RBC (3.65-5.03) M/mm3 Lymph % (Auto) (13.4-35.0) % [place] % (Auto) (0.0-7.3) % Seg Neutrophils % (40.0-70.0) % Seg Neutrophils # (1.8-7.7) K/mm3 Sodium (137-145) mmol/L Potassium (3.6-5.0) mmol/L BUN (7-17) mg/dL Creatinine (0.7-1.2) mg/dL POC Glucose 181 H 173 H 168 H (70-105) Total Protein (6.3-8.2) g/dL Albumin (3.9-5) g/dL 10/07/17 10/07/17 10/07/17 Range/Units 04:37 04:37 07:24 RBC 3.37 L (3.65-5.03) M/mm3 Lymph % (Auto) 47.1 H (13.4-35.0) % [place] % (Auto) 11.7 H (0.0-7.3) % Seg Neutrophils % 36.0 L (40.0-70.0) % Seg Neutrophils # 1.7 L (1.8-7.7) K/mm3 Sodium 136 L (137-145) mmol/L Potassium 5.2 H (3.6-5.0) mmol/L BUN 35 H (7-17) mg/dL Creatinine 2.2 H (0.7-1.2) mg/dL POC Glucose 52 L (70-105) Total Protein 6.1 L (6.3-8.2) g/dL Albumin 3.5 L (3.9-5) g/dL 10/07/17 10/07/17 10/07/17 Range/Units 08:15 12:56 15:14 RBC (3.65-5.03) M/mm3 Lymph % (Auto) (13.4-35.0) % [place] % (Auto) (0.0-7.3) % Seg Neutrophils % (40.0-70.0) % Seg Neutrophils # (1.8-7.7) K/mm3 Sodium (137-145) mmol/L Potassium 5.5 H (3.6-5.0) mmol/L BUN (7-17) mg/dL Creatinine (0.7-1.2) mg/dL POC Glucose 133 H 172 H (70-105) Total Protein (6.3-8.2) g/dL Albumin (3.9-5) g/dL
[2017-10-07 19:06] LABS: Albumin 3.8 g/dL (3.9-5); Calcium 8.7 mg/dL (8.4-10.2)
[2017-10-07] MEDS: LOVENOX SUB-Q SCH (21:42)
[2017-10-07] MEDS: LEVEMIR SUB-Q SCH (21:43)
--- NOTE | 2017-10-07 22:52 | Treadmill Report ---
THALLIUM STRESS TEST LEFT VENTRICLE: Left ventricular chamber size at the upper limits of normal. Perfusion study demonstrates homogeneous uptake of the tracer in all segments, no significant perfusion defects identified. Gated analysis demonstrates normal left ventricular systolic function with ejection fraction calculated at 59%. CONCLUSION: Normal myocardial perfusion study. JOB# [id number] CA/NTS
[2017-10-08] MEDS: MILK OF MAGNESIA PO PRN (02:22)
[2017-10-08 06:29] LABS: Albumin 3.7 g/dL (3.9-5); Calcium 8.8 mg/dL (8.4-10.2)
[2017-10-08] MEDS: SYNTHROID PO SCH (06:29)
[2017-10-08] MEDS: NOVOLOG SUB-Q SCH (08:26)
[2017-10-08] MEDS: GLUCOTROL XL PO SCH (08:42)
[2017-10-08] MEDS: ZOSTRIX HP TP SCH (08:43)
[2017-10-08] MEDS: VITAMIN D3 PO SCH (09:42)
[2017-10-08] MEDS: PEPCID PO SCH (09:42)
[2017-10-08] MEDS: TOPROL XL PO SCH (09:42)
[2017-10-08] MEDS: RANEXA ER PO SCH (09:42)
[2017-10-08] MEDS: FEOSOL PO SCH (09:42)
[2017-10-08] MEDS: IMDUR PO SCH (09:43)
[2017-10-08] MEDS: CATAPRES PO SCH (09:43)
[2017-10-08] MEDS: PLAVIX PO SCH (09:43)
[2017-10-08] MEDS: HALFPRIN EC PO SCH (09:43)
[2017-10-08] MEDS: celeXA PO SCH ×2 (09:43→09:51)
[2017-10-08 09:44] VITALS: BP 132/62
[2017-10-08] MEDS: LASIX PO SCH ×2 (09:44→10:05)
[2017-10-08] MEDS: NORVASC PO SCH (09:44)
[2017-10-08] MEDS: BENTYL PO SCH (09:44)
[2017-10-08] MEDS: FLONASE NS SCH (10:05)
[2017-10-08] MEDS: cefTRIAXone 1 GM in NACL 0.9% 20 ML IV SCH (10:05)
--- NOTE | 2017-10-08 10:20 | Progress Note ---
Assessment and Plan Chest pain, atypical normal perfusion persantine thallium stress test this admission. low probability for PE Hx of CAD status post remote coronary bypass in the early . recent PCI at [place], on plavix and aspirin Hypertension Diabetes mellitus An echocardiogram 12/2015 documents a left ventricle ejection fraction of 40-45% . Recommendations: Continue medical therapy for coronary artery disease. Stable cardiac tate. Patient advised to f/u with her primary early childhood associate, Dr Timi Osorio, within 1wk of discharge. Subjective Date of service: 10/08/17 Interval history: Patient denies chest pain. Objective Vital Signs Temp Pulse Resp BP BP Pulse Ox 10/08/17 09:43 60 132/62 10/08/17 09:42 60 132/62 10/08/17 08:08 97.6 F 60 20 130/62 100 10/08/17 03:55 98.1 F 59 L 19 126/51 97 10/07/17 23:13 98.2 F 58 L 18 151/66 100 10/07/17 19:47 98.2 F 62 19 127/52 98 10/07/17 15:10 97.5 F L 61 18 133/54 99 10/07/17 11:18 97.6 F 63 18 163/68 99 - Physical Examination General: Appears Well HEENT: Positive: PERRL Cardiac: Positive: Reg Rate and Rhythm Lungs: Positive: Decreased Breath Sounds Neuro: Positive: Grossly Intact Extremities: Absent: edema - Labs and Meds Cardiac Enzymes 10/07/17 10/08/17 Range/Units 18:27 04:58 AST 16 15 (5-40) units/L Comprehensive Metabolic Panel 10/07/17 10/07/17 10/08/17 Range/Units 12:56 18:27 04:58 Sodium 133 L 136 L (137-145) mmol/L Potassium 5.5 H 5.3 H 4.9 (3.6-5.0) mmol/L Chloride 94.6 L 96.5 L (98-107) mmol/L Carbon Dioxide 27 28 (22-30) mmol/L BUN 35 H 33 H (7-17) mg/dL Creatinine 2.2 H 2.2 H (0.7-1.2) mg/dL Glucose 141 H 105 H (65-100) mg/dL Calcium 8.7 8.8 (8.4-10.2) mg/dL AST 16 15 (5-40) units/L ALT 12 11 (7-56) units/L Alkaline Phosphatase 43 39 (35-129) units/L Total Protein 6.2 L 6.3 (6.3-8.2) g/dL Albumin 3.8 L 3.7 L (3.9-5) g/dL - Imaging and Cardiology EKG: report reviewed (normal sinus rhythm prolonged [place] interval and nonspecific intraventricular conduction delay interpreted by me)
--- NOTE | 2017-10-08 15:44 | Discharge Summary ---
Providers - Providers Date of Admission: 10/05/17 23:38 Date of discharge: 10/08/17 Attending physician: RAZA TATE 10/06/17 07:23 Consult to Physician [CONS] Routine Consulting Provider: REINALDO REN Reason For Exam: Chest pain Place consult to:: [place] [facility] Notified:: a service Phone number called:: [phone] Was contact made?: Yes If yes, spoke with:: oct Time called:: 08:04 Primary care physician: AUBREY NERI Hospitalization Condition: Stable Hospital course: 62 year-old female with past medical history of hypertension, type 2 diabetes, gastroesophageal reflux disease, coronary artery disease, hypothyroidism, hyperlipidemia and anemia presents with complaint of midsternal left-sided chest pain that has been going on for the past 2-3 days. She is status post bypass surgery and apparently had recent PCI a few months ago at [facility]. / Chest pain in adult, msk related s/p Lexiscan cardiology following and recommended medical Mx /hyperkalemia was on K-dur at home, will order kayexalate, insulin along with d50 cont to monitor K level /Coronary artery disease continue isosorbide mononitrate 120 mg once a day / Hyperlipidemia continue statins in the form of Lipitor 80 mg daily at bedtime / Hypothyroidism continue Synthroid 112 g once a day /Hypertension continue antihypertensives in the form of metoprolol and clonidine. will hold Diovan for hyperkalemia /CHF (congestive heart failure) continue Lasix /T2DM (type 2 diabetes mellitus) continue insulin coverage hold glipizide / Vitamin D deficiency continue vitamin D /Chronic idiopathic constipation continue plecanatide 3mg po qd /UTI (urinary tract infection) Initiated on Rocephin 1 g IV piggyback daily home with Levaquin / GERD (gastroesophageal reflux disease) continue ranitidine 150 mg twice a day /Chronic kidney disease stable /DVT prophylaxis initiated on Lovenox renally dosed per Cardiology: Chest pain, atypical normal perfusion persantine thallium stress test this admission. low probability for PE Hx of CAD status post remote coronary bypass in the early . recent PCI at [place], on plavix and aspirin Hypertension Diabetes mellitus An echocardiogram 12/2015 documents a left ventricle ejection fraction of 40-45% . Recommendations: Continue medical therapy for coronary artery disease. Stable cardiac tate. Patient advised to f/u with her primary copy holder, Dr Timi Osorio, within 1wk of discharge. Disposition: DC-01 TO HOME OR SELFCARE Time spent for discharge: 35 minutes Core Measure Documentation - Palliative Care Palliative Care/ Comfort Measures: Not Applicable - Core Measures Any of the following diagnoses?: none - VTE Discharge Requirements Deep Vein Thrombosis/Pulmonary Embolism Present on Admission: No Has pt received <5 days of overlap therapy or INR<2.0: No Anticoagulant overlap therapy prescribed at discharge: No Contraindication No Overlap Therapy order at DC: Not Indicated Exam - Constitutional Vitals: Temp Pulse Resp BP Pulse Ox 97.6 F 60 20 132/62 100 10/08/17 08:08 10/08/17 09:43 10/08/17 08:08 10/08/17 09:43 10/08/17 08:08 General appearance: Present: no acute distress - EENT Eyes: Present: PERRL, EOM intact ENT: hearing intact, clear oral mucosa - Neck Neck: Present: supple, normal ROM - Respiratory Respiratory: bilateral: CTA - Cardiovascular Rhythm: regular Heart Sounds: Present: S1 & S2 - Extremities Extremities: no ischemia, pulses intact Peripheral Pulses: within normal limits - Abdominal General gastrointestinal: Present: soft, non-tender, non-distended, normal bowel sounds - Musculoskeletal Musculoskeletal: strength equal bilaterally - Neurologic Neurologic: CNII-XII intact, no focal deficits, moves all extremities Plan Activity: other (no strenous activity until cleared by pcp) Diet: low salt Follow up with: AUBRYE NERI MD [Primary Care Provider] - 3-5 Days Prescriptions: Levofloxacin [Levaquin] 250 mg PO QDAY #4 tablet
== END 2017-10-08 12:31 | disposition home or self-care (01) | DRG 176 ==
LOC: ED 20:17 → 4A 23:38
PROVIDERS: ADMIT Internal Medicine; ATTEND Internal Medicine
DX: I26.99 Other pulmonary embolism without acute cor pulmonale (principal); K21.9 Gastro-esophageal reflux disease without esophagitis; I50.9 Heart failure, unspecified; I25.10 Atherosclerotic heart disease of native coronary artery without angina pectoris; E03.9 Hypothyroidism, unspecified; E78.5 Hyperlipidemia, unspecified; D64.9 Anemia, unspecified; E87.5 Hyperkalemia; E55.9 Vitamin D deficiency, unspecified; K59.04 Chronic idiopathic constipation; N39.0 Urinary tract infection, site not specified; N18.9 Chronic kidney disease, unspecified; I13.0 Hypertensive heart and chronic kidney disease with heart failure and stage 1 through stage 4 chronic kidney disease, or unspecified chronic kidney disease; G43.909 Migraine, unspecified, not intractable, without status migrainosus; J44.9 Chronic obstructive pulmonary disease, unspecified; E11.22 Type 2 diabetes mellitus with diabetic chronic kidney disease; Z79.899 Other long term (current) drug therapy; Z95.1 Presence of aortocoronary bypass graft; Z95.5 Presence of coronary angioplasty implant and graft; Z79.4 Long term (current) use of insulin; I25.2 Old myocardial infarction; R07.89 Other chest pain
CPT/HCPCS: 36415; 71010; 78452; 78582; 80053; 81001; 82962; 84132; 84484; 85025; 85379; 93005; 93010; 93017; 96365; 96375; A9270-GY; A9502; A9540; A9558; J0696; J1644; J1650; J1815; J1818; J2270; J2405; J2785